=== PATIENT | male | born 1985 | race Asian ===

== ENCOUNTER 2020-12-03 14:30 | Emergency (ER) | payer BC, OTHER ==
[~2020-12-03] VITALS: Ht 182.9 cm; Wt 93.0 kg
[2020-12-03] MEDS ORDERED: NOHOMEMEDICATIONS (14:44)
[2020-12-03 14:45] LABS: URINE BILIRUBIN NEGATIVE (Negative); URINE BLOOD 3+ (Negative); URINE CLARITY CLEAR; URINE COLOR YELLOW; URINE GLUCOSE-RANDOM* NEGATIVE (Negative); URINE KETONES NEGATIVE (Negative); URINE LEUKOCYTES-REFLEX NEGATIVE (Negative); URINE NITRITE-REFLEX NEGATIVE (Negative); URINE PROTEIN (DIPSTICK) TRACE (Negative); URINE SPECIFIC GRAVITY 1.025 (1.005-1.035); URINE UROBILINOGEN 0.2 E.U./dl (0.2-1.0)
[2020-12-03 14:49] LABS: ABSOLUTE NEUTROPHILS 8.7 thou/uL (1.4-8.2); BASOPHILS 0.3 % (0.0-2.0); EOSINOPHILS 2.3 % (0.0-3.0); HEMATOCRIT 44.8 % (42.0-52.0); LYMPHOCYTES 18.1 % (24.0-44.0); MCH 28.9 pg (26.0-34.0); MCHC 33.6 g/dL (28.0-37.0); MCV 86.2 fL (80.0-100.0); MONOCYTES 5.2 % (1.0-8.0); PLATELET COUNT 236 thou/uL (150-400); POLYS 74.1 % (36.0-66.0); WBC 11.7 thou/uL (4.0-11.0)
[2020-12-03 14:59] LABS: BACTERIA-REFLEX None Seen /HPF (None Seen); CASTS None Seen /LPF (None Seen); MUCUS 0-3 Light strn/LPF (None Seen); RENAL EPITHELIAL CELLS 0-3 Few /LPF (None Seen); SQUAMOUS None Seen /LPF (0-3); URINE RBC >20 Many /HPF (NONE SEEN); URINE WBC-REFLEX None Seen /HPF (0-5)
[2020-12-03 15:00] LABS: AMORPHOUS PHOSPHATES Moderate /LPF (None Seen); AMORPHOUS URATES Few /LPF (None Seen)
[2020-12-03 15:25] LABS: CALCIUM 9.4 mg/dL (8.5-10.1); CREATININE 1.2 mg/dL (0.7-1.3); POTASSIUM 3.5 mmol/L (3.5-5.1)
[2020-12-03] MEDS ORDERED: HYDROCODON-ACE1 EAC7 PO (16:18)
[2020-12-03 16:58] VITALS: BP 125/82
== END 2020-12-03 17:00 | disposition home or self-care (01) ==
LOC: ER 14:30
PROVIDERS: Nurse Practitioner
DX: R10.9 Unspecified abdominal pain (principal); R11.0 Nausea